=== PATIENT | female | born 1930 | race Caucasian/White ===

== ENCOUNTER 2017-01-07 08:48 | Outpatient (CLI) | payer MEDICARE, BC | END 2017-01-07 08:49 | disposition home or self-care (01) | DX: M10.9 Gout, unspecified (principal); R73.09 Other abnormal glucose; E03.9 Hypothyroidism, unspecified; Z85.3 Personal history of malignant neoplasm of breast ==

== ENCOUNTER 2017-01-27 09:31 | Outpatient (CLI) | payer MEDICARE, BC | END 2017-01-27 09:32 | disposition home or self-care (01) | DX: K80.20 Calculus of gallbladder without cholecystitis without obstruction (principal); K76.89 Other specified diseases of liver ==

== ENCOUNTER 2017-03-28 09:49 | Outpatient (CLI) | payer MEDICARE, BC ==
--- NOTE | 2017-03-29 10:03 | Mammography Report ---
DIGITAL BILATERAL SCREENING MAMMOGRAM: 03/28/2017 CLINICAL HISTORY: An 86-year-old female in for routine screening mammogram. Patient has no family h istory of breast cancer. Patient did have a left lumpectomy for breast cancer with radiation therapy . COMPARISON: 11/30/2007, 12/23/2008, 12/26/2009, 01/01/2011, 01/07/2012, 02/23/2013, 02/15/2014, 02/10, 03/25/2016 TECHNIQUE: Craniocaudad and oblique lateral views of each breast were obtained with [employer] [facility] digital mammography. FINDINGS: Breasts are almost entirely composed of fat. Mild skin thickening is noted along the periphery of the left breast. This is related to previous rehman rgery and radiation therapy. A small cluster of calcifications is noted in the extreme posterior asp ect of the tail of the right breast and/or in the right axilla. Etiological considerations include d eodorant artifact versus true cluster of calcifications. Patient had a similar finding on exam dated 03/25/2016. There were potential calcifications in this area in a smaller amount as far back as 200 9. Recommend patient return for additional views of this area. Additional views should include repe at oblique lateral view after her axilla has been cleansed to eliminate any deodorant artifact. If t his finding is still present, then an attempt should be made to obtain magnification views of this ar ea in oblique lateral and special axillary tail view. No additional abnormalities are noted. IMPRESSION: 1. PAST HISTORY OF LUMPECTOMY INVOLVING THE LEFT BREAST WITH SUBSEQUENT RADIATION THERAPY. SKIN OF THE LEFT BREAST IS MILDLY THICKENED A RESULT OF PREVIOUS SURGERY AND RADIATION THERAPY. NO SIGNIF ICANT CHANGE IS DETECTED IN THIS BREAST COMPARED TO MULTIPLE PRECEDING EXAMS. 2. EQUIVOCAL FINDING IS NOTED IN REGARD TO A SMALL CLUSTER OF CALCIFICATIONS IN THE EXTREME POSTERIO R ASPECT OF THE TAIL OF THE RIGHT BREAST OR RIGHT AXILLA. ETIOLOGICAL CONSIDERATIONS INCLUDE DEODORA NT ARTIFACT VERSUS TRUE CLUSTER OF CALCIFICATIONS. RECOMMEND PATIENT RETURN FOR ADDITIONAL VIEWS OF THE RIGHT BREAST DISCUSSED ABOVE. BIRADS CATEGORY 0 - INCOMPLETE. NEEDS ADDITIONAL IMAGING EVALUATION. ADDITIONAL VIEWS OF THE RIGHT BREAST. STANDARD QUALIFYING STATEMENTS 1. This examination was reviewed with the aid of Computer-Aided Detection (CAD). 2. A negative or benign imaging report should not delay biopsy if clinically suspicious findings are present. Consider surgical consultation if warranted. More than 5% of cancers are not identified by i maging. 3. Dense breasts may obscure an underlying neoplasm. JOB #: [id number] EXT JOB #:[id number]
== END 2017-03-28 09:50 | disposition home or self-care (01) ==
LOC: DI 09:49
PROVIDERS: ATTEND Internal Medicine
DX: Z12.31 Encounter for screening mammogram for malignant neoplasm of breast (principal); R92.8 Other abnormal and inconclusive findings on diagnostic imaging of breast; Z85.3 Personal history of malignant neoplasm of breast
CPT/HCPCS: 77067

== ENCOUNTER 2017-04-02 11:53 | Outpatient (CLI) | payer MEDICARE, BC ==
[2017-04-02 12:23] LABS: BILIRUBIN,URINE NEGATIVE (NEGATIVE); PH,URINE 6.5 PH (5.0-7.5)
[2017-04-02 12:28] LABS: UA w/ MICROSCOPIC CHARGE YES
[2017-04-02 12:37] LABS: UR CULTURE IF IND INDICATED; WBC,URINE >25 /HPF (0-5)
== END 2017-04-02 11:54 | disposition home or self-care (01) ==
LOC: LAB 11:53
PROVIDERS: ATTEND Nurse Practitioner Primary Care
DX: R30.0 Dysuria (principal)
CPT/HCPCS: 81001; 81003; 87086

== ENCOUNTER 2017-04-15 11:06 | Outpatient (CLI) | payer MEDICARE, BC ==
--- NOTE | 2017-04-15 15:33 | Mammography Report ---
DIGITAL DIAGNOSTIC RIGHT MAMMOGRAM: 04/15/2017 CLINICAL INDICATION: Possible calcifications right far upper posterior breast. TECHNIQUE: Right true lateral, laterally exaggerated craniocaudal, and spot magnification views. COMPARISON: 03/28/2017, 03/25/2016, 02/21/2015, 02/15/2014, 02/23/2013, 01/07/2012, 01/01/2011, 12/26. FINDINGS: The right breast again demonstrates scattered fibroglandular densities. Calcifications in the far right upper posterior breast persist. They are punctate on spot magnification views. No pleom orphism is seen. Other coarse and punctate, typically benign calcifications are present. IMPRESSION: PROBABLE BENIGN RIGHT BREAST CALCIFICATIONS. RECOMMENDATION: DIAGNOSTIC RIGHT MAMMOGRAM IN SIX MONTHS. BIRADS CATEGORY 3-PROBABLE BENIGN FINDINGS. STANDARD QUALIFYING STATEMENTS 1. This examination was reviewed with the aid of Computer-Aided Detection (CAD). 2. A negative or benign imaging report should not delay biopsy if clinically suspicious findings are present. Consider surgical consultation if warranted. More than 5% of cancers are not identified by i maging. 3. Dense breasts may obscure an underlying neoplasm. JOB #: [id number] EXT JOB #:[id number]
== END 2017-04-15 11:07 | disposition home or self-care (01) ==
LOC: DI 11:06
PROVIDERS: ATTEND Internal Medicine
DX: R92.2 Inconclusive mammogram (principal)

== ENCOUNTER 2017-06-13 11:30 | Outpatient (CLI) | payer MEDICARE, BC ==
[2017-06-13 12:46] LABS: ALBUMIN/GLOBULIN RATIO 1.4 (1.0-2.2); BILIRUBIN,TOTAL 0.8 mg/dL (0.2-1.0); CALCIUM 9.4 mg/dL (8.5-10.3); CREATININE 0.5 mg/dL (0.4-1.0); POTASSIUM 4.2 mmol/L (3.5-5.0); TOTAL PROTEIN 7.1 g/dL (6.7-8.2)
[2017-06-13 12:48] LABS: BASOPHILS # (AUTO) 0.1 10^3/uL (0.0-0.1); EOSINOPHILS # (AUTO) 0.1 10^3/uL (0.0-0.7); HCT - HEMATOCRIT 40.5 % (37.0-47.0); HGB - HEMOGLOBIN 13.6 g/dL (12.0-16.0); LYMPHOCYTES # (AUTO) 1.1 10^3/uL (1.5-3.5); LYMPHOCYTES % (AUTO) 19.3 %; MEAN CORPUSCULAR HEMOGLOBIN 34.7 pg (27.0-31.0); MEAN CORPUSCULAR HGB CONC 33.6 g/dL (32.0-36.0); MEAN CORPUSCULAR VOLUME 103.3 fL (81.0-99.0); MEAN PLATELET VOLUME 8.2 fL (7.9-10.8); MONOCYTES # (AUTO) 0.5 10^3/uL (0.0-1.0); MONOCYTES % (AUTO) 9.3 %; NEUTROPHILS # (AUTO) 3.8 10^3/uL (1.5-6.6); NEUTROPHILS % (AUTO) 68.4 %; RED BLOOD COUNT 3.92 10^6/uL (4.20-5.40); RED CELL DISTRIBUTION WIDTH 13.9 % (12.0-15.0); UNCORRECTED WHITE BLOOD COUNT 5.6 x10^3/uL; WHITE BLOOD COUNT 5.6 x10^3/uL (4.8-10.8)
== END 2017-06-13 11:31 | disposition home or self-care (01) ==
LOC: LAB.R 11:30
PROVIDERS: ATTEND Internal Medicine
DX: R10.13 Epigastric pain (principal)
CPT/HCPCS: 80053; 85025

== ENCOUNTER 2017-06-16 07:54 | Outpatient (CLI) | payer MEDICARE, BC ==
[2017-06-16] MEDS ORDERED: IOPAMIDOL-300 100 ML VIAL ONE (08:19)
[2017-06-16] MEDS ORDERED: IOPAMIDOL-300 50 ML VIAL ONE (08:19)
[2017-06-16] MEDS ORDERED: IOPAMIDOL-300 50 ML VIAL PO ONE (08:46)
[2017-06-16] MEDS ORDERED: IOPAMIDOL-300 100 ML VIAL IVP ONE (10:07)
--- NOTE | 2017-06-16 11:16 | CT Report ---
CT ABDOMEN AND PELVIS WITH CONTRAST: 06/16/2017 CLINICAL INDICATION: Epigastric pain. COMPARISON: 05/24/2013 TECHNIQUE: Axial CT images of the abdomen and pelvis were obtained with 100 mL Isovue-300 intravenou sly as well as oral contrast. In accordance with CT protocol optimization, one or more of the following dose reduction techniques w ere utilized for this exam: automated exposure control, adjustment of mA and/or KV based on patient size, or use of iterative reconstructive technique. FINDINGS: Limited evaluation of the lung bases demonstrates interval increase in size of the hiatal hernia. Minimal dependent atelectasis is present. Abdomen: Hepatic cysts are stable. The spleen, pancreas, kidneys, and adrenal glands are unremarkab le. The gallbladder is not dilated. No bowel dilatation, free gas, or free fluid is present. No a bdominal adenopathy is seen. Pelvis: Sigmoid diverticulosis is present, without CT evidence of diverticulitis. A pessary is note d in the vagina. No pelvic adenopathy or free fluid is present. Osseous structures demonstrate degenerative changes. IMPRESSION: INCREASE IN SIZE OF HIATAL HERNIA. DIVERTICULOSIS, WITHOUT CT EVIDENCE OF DIVERTICULITI S. JOB #: [id number] EXT JOB #:[id number]
== END 2017-06-16 07:55 | disposition home or self-care (01) ==
LOC: DI 07:54
PROVIDERS: ATTEND Internal Medicine
DX: K44.9 Diaphragmatic hernia without obstruction or gangrene (principal); K57.30 Diverticulosis of large intestine without perforation or abscess without bleeding
CPT/HCPCS: 74177; Q9967

== ENCOUNTER 2017-06-22 09:23 | Outpatient (CLI) | payer MEDICARE, BC ==
[2017-06-22 18:19] LABS: BILIRUBIN,DIRECT 0.1 mg/dL (0.1-0.5); TOTAL PROTEIN 6.8 g/dL (6.7-8.2)
== END 2017-06-22 09:24 | disposition home or self-care (01) ==
LOC: LAB.F 09:23
PROVIDERS: ATTEND Internal Medicine
DX: R89.9 Unspecified abnormal finding in specimens from other organs, systems and tissues (principal); R10.13 Epigastric pain
CPT/HCPCS: 36415; 80074; 80076; 82728

== ENCOUNTER 2017-07-06 09:22 | Outpatient (CLI) | payer MEDICARE, BC ==
[2017-07-06 17:52] LABS: ALBUMIN/GLOBULIN RATIO 1.3 (1.0-2.2); CALCIUM 9.2 mg/dL (8.5-10.3); CREATININE 0.6 mg/dL (0.4-1.0); POTASSIUM 3.9 mmol/L (3.5-5.0)
== END 2017-07-06 09:23 | disposition home or self-care (01) ==
LOC: LAB.F 09:22
PROVIDERS: ATTEND Internal Medicine
DX: R89.9 Unspecified abnormal finding in specimens from other organs, systems and tissues (principal)
CPT/HCPCS: 36415; 80053

== ENCOUNTER 2017-07-14 12:55 | Outpatient (CLI) | payer MEDICARE, BC ==
[2017-07-14 13:42] LABS: BILIRUBIN,TOTAL 0.8 mg/dL (0.2-1.0)
[2017-07-14 13:43] LABS: BILIRUBIN,DIRECT < 0.1 mg/dL (0.1-0.5)
[2017-07-16 13:57] LABS: ANA SCREEN NEGATIVE (NEGATIVE)
[2017-07-16 14:31] LABS: TEST RESULT REPORT
[2017-07-16 23:07] LABS: SMOOTH MUSCLE IGG AB <20 U
[2017-07-17 21:41] LABS: LIVER KIDNEY MICROSOME AB <20.0 U
== END 2017-07-14 12:56 | disposition home or self-care (01) ==
LOC: LAB 12:55
PROVIDERS: ATTEND Internal Medicine
DX: R89.9 Unspecified abnormal finding in specimens from other organs, systems and tissues (principal); Z79.899 Other long term (current) drug therapy
CPT/HCPCS: 36415; 80076; 81599; 82103; 82977; 83516; 86038; 86376

== ENCOUNTER 2017-08-02 08:00 | Outpatient (CLI) | payer MEDICARE, BC ==
[2017-08-02 12:53] LABS: BASOPHILS # (AUTO) 0.1 10^3/uL (0.0-0.1); BASOPHILS % (AUTO) 1.8 %; EOSINOPHILS # (AUTO) 0.1 10^3/uL (0.0-0.7); EOSINOPHILS % (AUTO) 1.7 %; HCT - HEMATOCRIT 38.4 % (37.0-47.0); HGB - HEMOGLOBIN 13.3 g/dL (12.0-16.0); LYMPHOCYTES # (AUTO) 0.9 10^3/uL (1.5-3.5); LYMPHOCYTES % (AUTO) 15.5 %; MEAN CORPUSCULAR HGB CONC 34.5 g/dL (32.0-36.0); MEAN CORPUSCULAR VOLUME 101.5 fL (81.0-99.0); MEAN PLATELET VOLUME 8.6 fL (7.9-10.8); MONOCYTES # (AUTO) 0.4 10^3/uL (0.0-1.0); MONOCYTES % (AUTO) 6.5 %; NEUTROPHILS # (AUTO) 4.4 10^3/uL (1.5-6.6); NEUTROPHILS % (AUTO) 74.5 %; RED BLOOD COUNT 3.79 10^6/uL (4.20-5.40); RED CELL DISTRIBUTION WIDTH 12.5 % (12.0-15.0); UNCORRECTED WHITE BLOOD COUNT 5.9 x10^3/uL; WHITE BLOOD COUNT 5.9 x10^3/uL (4.8-10.8)
[2017-08-02 13:25] LABS: ALBUMIN/GLOBULIN RATIO 1.2 (1.0-2.2); BILIRUBIN,TOTAL 0.8 mg/dL (0.2-1.0); CALCIUM 8.8 mg/dL (8.5-10.3); CREATININE 0.5 mg/dL (0.4-1.0); POTASSIUM 4.3 mmol/L (3.5-5.0); TOTAL PROTEIN 6.8 g/dL (6.7-8.2)
== END 2017-08-02 08:01 | disposition home or self-care (01) ==
LOC: LAB.R 08:00
PROVIDERS: ATTEND Nurse Practitioner Primary Care
DX: B37.3 Candidiasis of vulva and vagina (principal); N39.0 Urinary tract infection, site not specified; R81 Glycosuria
CPT/HCPCS: 80053; 85025; 87086

== ENCOUNTER 2017-08-09 14:28 | Outpatient (CLI) | payer MEDICARE, BC ==
[2017-08-09 12:04] LABS: BASOPHILS # (AUTO) 0.1 10^3/uL (0.0-0.1); BASOPHILS % (AUTO) 2.4 %; EOSINOPHILS # (AUTO) 0.1 10^3/uL (0.0-0.7); EOSINOPHILS % (AUTO) 1.8 %; HCT - HEMATOCRIT 40.5 % (37.0-47.0); HGB - HEMOGLOBIN 13.8 g/dL (12.0-16.0); LYMPHOCYTES # (AUTO) 1.1 10^3/uL (1.5-3.5); LYMPHOCYTES % (AUTO) 21.1 %; MEAN CORPUSCULAR HEMOGLOBIN 34.8 pg (27.0-31.0); MEAN CORPUSCULAR HGB CONC 34.2 g/dL (32.0-36.0); MEAN CORPUSCULAR VOLUME 101.9 fL (81.0-99.0); MEAN PLATELET VOLUME 8.4 fL (7.9-10.8); MONOCYTES # (AUTO) 0.5 10^3/uL (0.0-1.0); MONOCYTES % (AUTO) 9.1 %; NEUTROPHILS # (AUTO) 3.4 10^3/uL (1.5-6.6); NEUTROPHILS % (AUTO) 65.6 %; RED BLOOD COUNT 3.97 10^6/uL (4.20-5.40); RED CELL DISTRIBUTION WIDTH 12.8 % (12.0-15.0); UNCORRECTED WHITE BLOOD COUNT 5.1 x10^3/uL; WHITE BLOOD COUNT 5.1 x10^3/uL (4.8-10.8)
[2017-08-09 12:22] LABS: HEMOGLOBIN A1C 1.43 g/dL
[2017-08-09 12:28] LABS: ALBUMIN/GLOBULIN RATIO 1.2 (1.0-2.2); AMYLASE 43 U/L (28-100); BILIRUBIN,TOTAL 0.9 mg/dL (0.2-1.0); BUN - BLOOD UREA NITROGEN 16 mg/dL (6-20); CALCIUM 9.4 mg/dL (8.5-10.3); CARBON DIOXIDE - CO2 20 mmol/L (21-32); CHLORIDE 92 mmol/L (101-111); CREATININE 0.6 mg/dL (0.4-1.0); GFR - MDRD 94 (>89); GLUCOSE 538 mg/dL (70-100); LIPASE 51 U/L (22-51); POTASSIUM 4.8 mmol/L (3.5-5.0); SODIUM 126 mmol/L (135-145); TOTAL PROTEIN 7.1 g/dL (6.7-8.2)
== END 2017-08-09 14:29 | disposition home or self-care (01) ==
LOC: LAB.R 14:28
PROVIDERS: ATTEND Nurse Practitioner Primary Care
DX: R79.89 Other specified abnormal findings of blood chemistry (principal); R63.4 Abnormal weight loss; E11.65 Type 2 diabetes mellitus with hyperglycemia
CPT/HCPCS: 80053; 82150; 83036; 83690; 85025; 85651; 86140

== ENCOUNTER 2017-08-11 09:42 | Outpatient (CLI) | payer MEDICARE, BC ==
[2017-08-11 10:16] LABS: CALCIUM 9.5 mg/dL (8.5-10.3); CREATININE 0.5 mg/dL (0.4-1.0)
== END 2017-08-11 09:43 | disposition home or self-care (01) ==
LOC: LAB 09:42
PROVIDERS: ATTEND Nurse Practitioner Primary Care
DX: E10.9 Type 1 diabetes mellitus without complications (principal); R79.89 Other specified abnormal findings of blood chemistry; R63.4 Abnormal weight loss
CPT/HCPCS: 36415; 80048

== ENCOUNTER 2017-09-29 10:44 | Outpatient (CLI) | payer MEDICARE, BC ==
[2017-09-29 18:32] LABS: HB2 TOTAL 13.2 g/dL; HEMOGLOBIN A1C 0.88 g/dL; HEMOGLOBIN A1C % 8.3 % (4.6-6.2)
== END 2017-09-29 10:45 | disposition home or self-care (01) ==
LOC: LAB.R 10:44
PROVIDERS: ATTEND Internal Medicine
DX: N39.0 Urinary tract infection, site not specified (principal); E10.9 Type 1 diabetes mellitus without complications
CPT/HCPCS: 83036; 87086

== ENCOUNTER 2017-10-18 13:46 | Outpatient (CLI) | payer MEDICARE, BC ==
--- NOTE | 2017-10-18 18:19 | Mammography Report ---
DATE OF SERVICE: 10/18/2017 DIGITAL DIAGNOSTIC RIGHT MAMMOGRAM: 10/18/2017 CLINICAL INDICATION: Followup calcifications. TECHNIQUE: Right CC, MLO, true lateral, spot magnification views. COMPARISON: 04/15/2017, 03/28/2017, 03/25/2016, 02/21/2015, 02/15/2014, 02/23/2013, 01/07/2012, 01/01/2011, 12/26/2009. FINDINGS: The right breast again demonstrates fatty replacement. The calcifications in question, in the right upper outer far posterior breast, remain punctate on spot magnification views. No developing pleomorphism is seen. Other coarse, typically benign calcifications are stable. IMPRESSION: PROBABLE BENIGN CALCIFICATIONS IN THE RIGHT UPPER FAR POSTERIOR BREAST. RECOMMENDATION: Diagnostic bilateral mammogram in 6 months, to assure stability. BIRADS category 3, probable benign findings. STANDARD QUALIFYING STATEMENTS 1. This examination was reviewed with the aid of Computed-Aided Detection (CAD). 2. A negative or benign imaging report should not delay biopsy if clinically suspicious findings are present. Consider surgical consultation if warranted. More than 5% of cancers are not identified by imaging. 3. Dense breasts may obscure an underlying neoplasm. TD: 10/18/2017 18:18
== END 2017-10-18 13:47 | disposition home or self-care (01) ==
LOC: DI 13:46
PROVIDERS: ATTEND Internal Medicine
DX: R92.1 Mammographic calcification found on diagnostic imaging of breast (principal)

== ENCOUNTER 2017-10-28 08:29 | Outpatient (CLI) | payer MEDICARE, BC ==
[2017-10-28 10:24] LABS: CHOL/HDL RATIO 3.4 (<4.4); CHOLESTEROL 204 mg/dL; HDL CHOLESTEROL 60 mg/dL; LDL CHOLESTEROL,CALCULATED 132 mg/dL; LDL/HDL RATIO 2.2 (<4.4); VLDL CHOLESTEROL 12 mg/dL
== END 2017-10-28 08:30 | disposition home or self-care (01) ==
LOC: LAB.F 08:29
PROVIDERS: ATTEND Physician Assistant
DX: R74.8 Abnormal levels of other serum enzymes (principal); R10.13 Epigastric pain; R63.4 Abnormal weight loss; R63.0 Anorexia
CPT/HCPCS: 36415; 80061; 83721

== ENCOUNTER 2017-12-06 09:42 | Outpatient (CLI) | payer MEDICARE, BC ==
[2017-12-06 17:50] LABS: BASOPHILS # (AUTO) 0.1 10^3/uL (0.0-0.1); BASOPHILS % (AUTO) 2.5 %; EOSINOPHILS # (AUTO) 0.3 10^3/uL (0.0-0.7); EOSINOPHILS % (AUTO) 7.2 %; HGB - HEMOGLOBIN 12.5 g/dL (12.0-16.0); LYMPHOCYTES # (AUTO) 1.2 10^3/uL (1.5-3.5); LYMPHOCYTES % (AUTO) 25.4 %; MEAN CORPUSCULAR HEMOGLOBIN 31.3 pg (27.0-31.0); MEAN CORPUSCULAR HGB CONC 32.8 g/dL (32.0-36.0); MEAN CORPUSCULAR VOLUME 95.2 fL (81.0-99.0); MEAN PLATELET VOLUME 8.5 fL (7.9-10.8); MONOCYTES # (AUTO) 0.5 10^3/uL (0.0-1.0); MONOCYTES % (AUTO) 9.6 %; NEUTROPHILS # (AUTO) 2.6 10^3/uL (1.5-6.6); NEUTROPHILS % (AUTO) 55.3 %; PLT - PLATELET COUNT 334 10^3/uL (130-450); RED BLOOD COUNT 4.01 10^6/uL (4.20-5.40); RED CELL DISTRIBUTION WIDTH 13.5 % (12.0-15.0); WHITE BLOOD COUNT 4.7 x10^3/uL (4.8-10.8)
[2017-12-06 17:54] LABS: ALBUMIN 3.7 g/dL (3.2-5.5); ALBUMIN/GLOBULIN RATIO 1.2 (1.0-2.2); BILIRUBIN,TOTAL 0.9 mg/dL (0.2-1.0); CALCIUM 9.8 mg/dL (8.5-10.3); CREATININE 0.7 mg/dL (0.4-1.0); TOTAL PROTEIN 6.7 g/dL (6.7-8.2)
== END 2017-12-06 09:43 | disposition home or self-care (01) ==
LOC: LAB 09:42
PROVIDERS: ATTEND Nurse Practitioner Primary Care
DX: E10.9 Type 1 diabetes mellitus without complications (principal); E03.9 Hypothyroidism, unspecified; R79.89 Other specified abnormal findings of blood chemistry; K59.00 Constipation, unspecified; R63.4 Abnormal weight loss; R74.8 Abnormal levels of other serum enzymes; M1A.9XX0 Chronic gout, unspecified, without tophus (tophi)
CPT/HCPCS: 36415; 80053; 82248; 84443; 85025; 85610

== ENCOUNTER 2017-12-22 15:11 | Outpatient (CLI) | payer MEDICARE, BC ==
--- NOTE | 2017-12-23 09:24 | XRAY Report ---
TWO VIEW CHEST: 12/22/2017 CLINICAL INDICATION: Cough, shortness of breath. COMPARISON: Chest CT 05/24/2013. FINDINGS: Frontal and lateral views of the chest demonstrate a normal cardiac silhouette. A moderate hiatal hernia is present. There is a left lower lobe infiltrate present, with small left effusion. No pneumothorax is seen. IMPRESSION: LEFT LOWER LOBE INFILTRATE, WITH SMALL LEFT EFFUSION. MODERATE HIATAL HERNIA. TD: 12/23/2017 09:23
== END 2017-12-22 15:12 | disposition home or self-care (01) ==
LOC: DI 15:11
PROVIDERS: ATTEND Internal Medicine
DX: R91.8 Other nonspecific abnormal finding of lung field (principal); J90 Pleural effusion, not elsewhere classified; K44.9 Diaphragmatic hernia without obstruction or gangrene
CPT/HCPCS: 71046

== ENCOUNTER 2018-01-05 09:20 | Outpatient (CLI) | payer MEDICARE, BC ==
[2018-01-05 18:10] LABS: ALT ALANINE AMINOTRANSFERASE 71 IU/L (10-60); AST ASPARTATE AMINOTRANSFERASE 99 IU/L (10-42); GLUCOSE,FASTING 128 mg/dL (70-100)
[2018-01-05 18:29] LABS: HB2 TOTAL 13.2 g/dL; HEMOGLOBIN A1C 0.78 g/dL; HEMOGLOBIN A1C % 7.6 % (4.6-6.2)
== END 2018-01-05 09:21 | disposition home or self-care (01) ==
LOC: LAB.F 09:20
PROVIDERS: ATTEND Nurse Practitioner Primary Care
DX: E10.9 Type 1 diabetes mellitus without complications (principal); R79.89 Other specified abnormal findings of blood chemistry; Z79.899 Other long term (current) drug therapy; I99.8 Other disorder of circulatory system
CPT/HCPCS: 36415; 82947; 83036; 84450; 84460

== ENCOUNTER 2018-03-01 13:58 | Outpatient (CLI) | payer MEDICARE, BC ==
[2018-03-01 17:48] LABS: ALBUMIN 3.4 g/dL (3.2-5.5); ALBUMIN/GLOBULIN RATIO 1.1 (1.0-2.2); BILIRUBIN,TOTAL 0.5 mg/dL (0.2-1.0); CALCIUM 8.9 mg/dL (8.5-10.3); CREATININE 0.4 mg/dL (0.4-1.0); TOTAL PROTEIN 6.4 g/dL (6.7-8.2)
== END 2018-03-01 13:59 | disposition home or self-care (01) ==
LOC: LAB.F 13:58
PROVIDERS: ATTEND Internal Medicine
DX: R79.89 Other specified abnormal findings of blood chemistry (principal)
CPT/HCPCS: 36415; 80053

== ENCOUNTER 2018-05-22 10:54 | Outpatient (CLI) | payer MEDICARE, BC ==
--- NOTE | 2018-05-23 12:04 | Mammography Report ---
Reason: FEMALE BREAST CANCER, LEFT BREAST Procedure Date: 05/22/2018 Accession Number: [id number] / [id number] Procedure: [facility] - Diagnostic Dig Bilat CPT Code: FULL RESULT: EXAM: Diagnostic Dig Bilat DATE: 05/22/2018 11:52 AM CLINICAL HISTORY: Follow-up calcifications BI-RADS 3 TECHNIQUE: Bilateral MLO and CC breast views. Additional spot magnification CC and LM right breast. COMPARISON: October 18, 2017 mammogram FINDINGS: There are scattered fibroglandular densities. Again seen is a cluster of calcifications in the right upper outer breast. They are predominantly punctate, coarse, and ovoid. They appear unchanged. No mass or architectural distortion is seen. IMPRESSION: BI-RADS Category 3. Probably benign findings. RECOMMENDATION: Six-month right diagnostic mammogram to evaluate stability. BIRADS CATEGORY 3. Probably benign findings. STANDARD QUALIFYING STATEMENTS: 1. This examination was reviewed with the aid of Computer-Aided Detection (CAD). 2. A negative or benign imaging report should not delay biopsy if clinically suspicious findings are present. Consider surgical consultation if warrented. More than 5% of cancers are not identified by imaging. 3. Dense breasts may obscure an underlying neoplasm.
== END 2018-05-22 10:55 | disposition home or self-care (01) ==
LOC: DI 10:54
PROVIDERS: ATTEND Internal Medicine
DX: C50.912 Malignant neoplasm of unspecified site of left female breast (principal)
CPT/HCPCS: 77066

== ENCOUNTER 2018-06-22 09:34 | Outpatient (CLI) | payer MEDICARE, BC ==
[2018-06-22 18:03] LABS: ALBUMIN 3.8 g/dL (3.2-5.5); ALBUMIN/GLOBULIN RATIO 1.4 (1.0-2.2); BILIRUBIN,TOTAL 0.8 mg/dL (0.2-1.0); CALCIUM 9.1 mg/dL (8.5-10.3); CREATININE 0.4 mg/dL (0.4-1.0); TOTAL PROTEIN 6.5 g/dL (6.7-8.2)
[2018-06-22 18:57] LABS: HB2 TOTAL 13.9 g/dL; HEMOGLOBIN A1C 0.65 g/dL; HEMOGLOBIN A1C % 6.4 % (4.6-6.2)
== END 2018-06-22 09:35 | disposition home or self-care (01) ==
LOC: LAB.F 09:34
PROVIDERS: ATTEND Internal Medicine
DX: E10.9 Type 1 diabetes mellitus without complications (principal); R79.89 Other specified abnormal findings of blood chemistry
CPT/HCPCS: 36415; 80053; 83036

== ENCOUNTER 2018-09-11 09:00 | Outpatient (CLI) | payer MEDICARE, BC ==
[2018-09-11] MEDS: BARIUM SULFATE 176 GM BOTTLE PO ONE (10:17)
[2018-09-11] MEDS: SIMETHICONE/SOD BICARB/CIT AC 1 EACH PACKET PO ONE (10:18)
[2018-09-11] MEDS: BARIUM SULFATE 135 ML BOTTLE PO ONE (10:18)
--- NOTE | 2018-09-11 14:35 | XRAY Report ---
Reason: EPIGASTRIC DISCOMFORT, RUQ, HIATAL HERNIA Procedure Date: 09/11/2018 Accession Number: [id number] / [id number] Procedure: FL - Esophogram CPT Code: FULL RESULT: EXAM: BARIUM ESOPHAGRAM EXAM DATE: 09/11/2018 10:13 AM. CLINICAL HISTORY: Epigastric discomfort, right upper quadrant, hiatal hernia. COMPARISONS: None. TECHNIQUE: Routine double contrast esophagram. Fluoroscopy Time: 1 minute 18 seconds. Number of Images: 30. FINDINGS: Swallowing Mechanism: Normal. No tracheal aspiration or penetration. Esophageal Motility: Normal peristaltic stripping wave. Mucosa: The lower esophageal mucosa appears irregular segmentally a few centimeters above and in the region of the GE junction. Gastroesophageal Junction: The large portion of the stomach is intrathoracic in keeping with a large hernia. Other: None. IMPRESSION: Large hiatal hernia and distal esophageal mucosal changes. If this has not been performed, recommend endoscopic evaluation of the lower esophagus in the setting of large hiatal hernia. RADIA
== END 2018-09-11 09:01 | disposition home or self-care (01) ==
LOC: DI 09:00
PROVIDERS: ATTEND Internal Medicine
DX: K44.9 Diaphragmatic hernia without obstruction or gangrene (principal); R10.13 Epigastric pain; R10.11 Right upper quadrant pain
CPT/HCPCS: 74220; A9270

== ENCOUNTER 2018-09-25 07:50 | Outpatient (CLI) | payer MEDICARE, BC ==
[2018-09-25 09:44] LABS: ALBUMIN 3.8 g/dL (3.2-5.5); ALBUMIN/GLOBULIN RATIO 1.4 (1.0-2.2); BILIRUBIN,TOTAL 0.8 mg/dL (0.2-1.0); CALCIUM 9.2 mg/dL (8.5-10.3); CREATININE 0.5 mg/dL (0.4-1.0); TOTAL PROTEIN 6.6 g/dL (6.7-8.2)
[2018-09-25 10:09] LABS: HB2 TOTAL 13.7 g/dL; HEMOGLOBIN A1C 0.67 g/dL; HEMOGLOBIN A1C % 6.6 % (4.6-6.2)
--- NOTE | 2018-09-25 17:41 | Ultrasound Report ---
Reason: EPIGASTRIC DISCOMFORT, RUQ, HIATAL HERNIA Procedure Date: 09/25/2018 Accession Number: [id number] / [id number] Procedure: US - Abdomen Complete CPT Code: FULL RESULT: EXAM: ABDOMEN ULTRASOUND EXAM DATE: 09/25/2018 09:11 AM. CLINICAL HISTORY: EPIGASTRIC DISCOMFORT, RUQ, HIATAL HERNIA. COMPARISON: None. TECHNIQUE: Real-time scanning was performed with static images obtained. FINDINGS: Liver: The liver is moderately and diffusely echogenic. Normal contour. No masses. 2 simple appearing cysts in the left lobe measure 1.1 cm and 1.0 cm. A simple appearing cyst in the right lobe measures 2.5 cm. The liver measures 12.3 cm. Main portal vein flow: Hepatopetal. Gallbladder: There are multiple small layering gallstones. No gallbladder wall thickening or pericholecystic fluid. Biliary System: Common bile duct measures 6 mm. No intrahepatic or extrahepatic ductal dilatation. Pancreas: Not well seen due to overlying bowel gas. Kidneys: Right: 10.1 cm longitudinally. Mild renal pelviectasis. Otherwise No contour-deforming mass, stones, or hydronephrosis. Left: 10.5 cm longitudinally. No contour-deforming mass, stones, or hydronephrosis. Spleen: 7.9 cm. Normal in size and echotexture. Aorta and Inferior Vena Cava: Unremarkable. IMPRESSION: Moderate hepatic steatosis. Multiple gallstones without cholecystitis. RADIA
== END 2018-09-25 07:51 | disposition home or self-care (01) ==
LOC: DI 07:50
PROVIDERS: ATTEND Internal Medicine
DX: K80.20 Calculus of gallbladder without cholecystitis without obstruction (principal); K76.0 Fatty (change of) liver, not elsewhere classified; K44.9 Diaphragmatic hernia without obstruction or gangrene; E10.9 Type 1 diabetes mellitus without complications; R74.8 Abnormal levels of other serum enzymes; Z79.899 Other long term (current) drug therapy
CPT/HCPCS: 36415; 76700; 80053; 83036

== ENCOUNTER 2018-10-31 08:00 | Outpatient (CLI) | payer MEDICARE, BC | END 2018-10-31 23:59 | disposition home or self-care (01) | LOC: LAB.R 08:00 | PROVIDERS: ATTEND Physician Assistant Medical | DX: N30.00 Acute cystitis without hematuria (principal) | CPT/HCPCS: 87086 ==

== ENCOUNTER 2018-11-07 08:00 | Outpatient (CLI) | payer MEDICARE, BC | END 2018-11-07 23:59 | disposition home or self-care (01) | LOC: LAB.R 08:00 | PROVIDERS: ATTEND Physician Assistant Medical | DX: N30.00 Acute cystitis without hematuria (principal) | CPT/HCPCS: 87086 ==

== ENCOUNTER 2018-12-22 08:13 | Outpatient (CLI) | payer MEDICARE, BC ==
[2018-12-22 11:04] LABS: CHOL/HDL RATIO 3.3 (<4.4); CHOLESTEROL 250 mg/dL; HDL CHOLESTEROL 75 mg/dL; LDL CHOLESTEROL,CALCULATED 166 mg/dL; LDL/HDL RATIO 2.2 (<4.4); VLDL CHOLESTEROL 9 mg/dL
[2018-12-22 11:06] LABS: HEMOGLOBIN A1C 0.75 g/dL; HEMOGLOBIN A1C % 7.1 % (4.6-6.2)
== END 2018-12-22 08:14 | disposition home or self-care (01) ==
LOC: LAB.F 08:13
PROVIDERS: ATTEND Internal Medicine
DX: E10.9 Type 1 diabetes mellitus without complications (principal); E03.9 Hypothyroidism, unspecified
CPT/HCPCS: 36415; 80061; 82043; 83036; 83721; 84443

== ENCOUNTER 2019-01-23 18:19 | Outpatient (CLI) | payer SELFPAY | END 2019-01-23 18:20 | disposition EMS.NT | LOC: EMS 18:19 | PROVIDERS: ATTEND Surgery | DX: R04.0 Epistaxis (principal) ==

== ENCOUNTER 2019-01-23 19:14 | Emergency (ER) | payer MEDICARE, BC ==
[2019-01-23 20:05] LABS: BASOPHILS # (AUTO) 0.1 10^3/uL (0.0-0.1); EOSINOPHILS # (AUTO) 0.1 10^3/uL (0.0-0.7); EOSINOPHILS % (AUTO) 1.4 %; HGB - HEMOGLOBIN 12.4 g/dL (12.0-16.0); LYMPHOCYTES # (AUTO) 0.9 10^3/uL (1.5-3.5); LYMPHOCYTES % (AUTO) 12.7 %; MEAN CORPUSCULAR VOLUME 97.2 fL (81.0-99.0); MEAN PLATELET VOLUME 7.2 fL (7.9-10.8); MONOCYTES # (AUTO) 0.5 10^3/uL (0.0-1.0); MONOCYTES % (AUTO) 7.5 %; NEUTROPHILS # (AUTO) 5.5 10^3/uL (1.5-6.6); NEUTROPHILS % (AUTO) 77.4 %; PLT - PLATELET COUNT 318 10^3/uL (130-450); RED BLOOD COUNT 3.64 10^6/uL (4.20-5.40); RED CELL DISTRIBUTION WIDTH 13.4 % (12.0-15.0); WHITE BLOOD COUNT 7.1 x10^3/uL (4.8-10.8)
[2019-01-23 20:11] LABS: INR 1.1 (0.8-1.2); PT - PROTHROMBIN TIME 12.5 secs (9.9-12.6)
[2019-01-23 20:16] LABS: CALCIUM 9.2 mg/dL (8.5-10.3); CREATININE 0.5 mg/dL (0.4-1.0)
--- NOTE | 2019-01-23 20:39 | CT Report ---
Reason: fall, head injury, dizzy Procedure Date: 01/23/2019 Accession Number: [id number] / [id number] Procedure: CT - HEAD WO CPT Code: FULL RESULT: EXAM: CT HEAD EXAM DATE: 01/23/2019 08:13 PM. CLINICAL HISTORY: Fall, head injury, dizzy. COMPARISON: None. TECHNIQUE: Multiaxial CT images were obtained from the foramen magnum to the vertex. Reformats: Sagittal and coronal. IV contrast: None. In accordance with CT protocol optimization, one or more of the following dose reduction techniques were utilized for this exam: automated exposure control, adjustment of mA and/or KV based on patient size, or use of iterative reconstructive technique. FINDINGS: Parenchyma: No intraparenchymal hemorrhage. No evidence of mass, midline shift, or CT findings of acute infarction. Nichole-white differentiation is distinct. Diffuse chronic microangiopathic white matter changes are evident. Extraaxial Spaces: Normal for age. No subdural or epidural collections identified. Ventricles: The ventricles and cortical sulci are enlarged, consistent with age-related tissue loss. Sinuses and orbits: Imaged paranasal sinuses, orbits, and mastoids show no significant abnormality. Bones: No evidence of fracture or calvarial defect. Other: None. IMPRESSION: Generalized age-related cortical atrophic changes without evidence of acute intracranial abnormality. RADIA
[2019-01-23] MEDS ORDERED: TRANEXAMIC ACID 1,000 MG/10 ML VIAL NAS STA (21:30)
--- NOTE | 2019-01-23 22:14 | ED Physician Documentation ---
PD HPI HEENT - Stated complaint Stated Complaint: NOSE BLEED - Chief complaint Chief Complaint: Heent - History obtained from History obtained from: Patient, Family - History of Present Illness Timing - onset: How many hours ago (5) Timing - duration: Hours (5) Timing - details: Abrupt onset, Constant, Still present in ED Pain level max: 0 Pain level now: 0 Location: Nose Improves: Nothing Associated symptoms: No: Fever, Congestion, Rhinorrhea, Trismus, Unable to swallow, Swollen nodes, Facial swelling, Headache, Cough Similar symptoms before: Has not had sx before Recently seen: Not recently seen - Additional information Additional information: also fell and hit her head and her right hip today. Review of Systems Constitutional: denies: Fever, Chills Respiratory: denies: Cough GI: denies: Vomiting, Diarrhea Neurologic: denies: Focal weakness, Numbness, Seizure, Altered mental status, LOC PD PAST MEDICAL HISTORY - Past Medical History Past Medical History: Yes Cardiovascular: None Respiratory: Asthma, Pneumonia Endocrine/Autoimmune: Type 1 diabetes, HyPOthyroidism GI: Colon polyps, Hepatitis : Incontinence, Frequency HEENT: Macular degeneration Psych: None Musculoskeletal: Gout Derm: Other - Past Surgical History Past Surgical History: Yes General: Colonoscopy, Other HEENT: Tonsil/Adenoidectomy - Present Medications Home Medications: Ambulatory Orders Medication Instructions Recorded Confirmed Allopurinol [Zyloprim] 100 mg PO DAILY 01/23/13 11/10/17 Fluticasone 44 Mcg [Flovent] 2 puffs INH BID 01/23/13 11/10/17 Levothyroxine Sodium [Synthroid] 50 mcg PO DAILY 01/23/13 11/10/17 Salmeterol [Serevent] 1 puffs INH BID 01/23/13 11/10/17 Allopurinol 100 mg PO DAILY 08/11/17 11/10/17 Aspirin 81 mg PO DAILY 08/11/17 11/10/17 Calcium Carbonate/Vitamin D3 1 each PO BID 08/11/17 11/10/17 [Calcium 600 + Vit D 400 Tablet] Cholecalciferol (Vitamin D3) 1,000 unit PO BID 08/11/17 11/10/17 [Vitamin D3] Docusate Sodium 300 mg PO DAILY 08/11/17 11/10/17 Insulin Glargine [Lantus Solostar] 7 unit SUBQ QPM 08/11/17 11/10/17 Omeprazole 20 mg PO DAILY 08/11/17 11/10/17 Sulfamethox/Trimeth 800/160 1 each PO BID 08/11/17 11/10/17 [Bactrim Ds 800/160] Vit C/E/Zinc/Lutein/Zeaxanthin 1 each PO DAILY 08/11/17 11/10/17 [[employer] Gummies] Metformin HCl 250 mg PO BID 08/12/17 11/10/17 Cephalexin [Keflex] 500 mg PO Q6H #8 capsule 01/23/19 - Allergies Allergies/Adverse Reactions: Allergies Allergy/AdvReac Type Severity Reaction Status Date / Time hydrocodone [Hydrocodone] Allergy Intermediate Rash Verified 01/23/19 19:25 Qojxetg-Yca-Pvq Reductase AdvReac Unknown Verified 01/23/19 19:25 Inhibitor Sulfa (Sulfonamide AdvReac Rash Verified 01/24/19 12:49 Antibiotics) - Social History Does the pt smoke?: No Smoking Status: Never smoker Does the pt drink ETOH?: Yes ETOH Use: Wine Does the pt have substance abuse?: No - Immunizations Immunizations are current?: Yes Immunizations: TDAP current <10years - POLST Patient has POLST: No PD ED PE NORMAL - Vitals Vital signs reviewed: Yes - General General: Alert and oriented X 3, No acute distress - HEENT HEENT: Atraumatic, PERRL, EOMI, Moist mucous membranes, Other (Slow drip from the right nare. No source of bleeding visible) - Neck Neck: Supple, no meningeal sign, No bony TTP - Cardiac Cardiac: RRR, Strong equal pulses - Respiratory Respiratory: No respiratory distress, Clear bilaterally - Back Back: No spinal TTP - Derm Derm: Warm and dry - Extremities Extremities: No deformity, No tenderness to palpate, No edema, No calf tenderness / cord - Neuro Neuro: Alert and oriented X 3, emergency man 2-12 intact, No motor deficit, No sensory deficit, Normal speech Eye Opening: Spontaneous Motor: Obeys Commands Verbal: Oriented GCS Score: 15 Results - Vitals Vitals: Vital Signs - 24 hr 01/23/19 01/23/19 01/23/19 19:23 21:40 22:53 Temperature 36.4 C L Heart Rate 106 H 105 H 108 H Respiratory 14 18 20 Rate Blood Pressure 176/93 H 154/77 H 145/82 H O2 Saturation 98 98 96 Oxygen O2 Source Room air - Labs Labs: Laboratory Tests 01/23/19 01/23/19 01/23/19 19:58 19:58 19:58 WBC 7.1 RBC 3.64 L Hgb 12.4 Hct 35.3 L MCV 97.2 MCH 34.0 H MCHC 35.0 RDW 13.4 Plt Count 318 MPV 7.2 L Neut # (Auto) 5.5 Lymph # (Auto) 0.9 L [place] # (Auto) 0.5 Eos # (Auto) 0.1 Baso # (Auto) 0.1 Absolute Nucleated RBC 0.00 Nucleated RBC % 0.0 PT 12.5 INR 1.1 APTT Sodium 127 L Potassium 4.2 Chloride 94 L Carbon Dioxide 22 Anion Gap 11.0 BUN 25 H Creatinine 0.5 Estimated GFR (MDRD) 116 Glucose 228 H Calcium 9.2 01/23/19 19:58 WBC RBC Hgb Hct MCV MCH MCHC RDW Plt Count MPV Neut # (Auto) Lymph # (Auto) [place] # (Auto) Eos # (Auto) Baso # (Auto) Absolute Nucleated RBC Nucleated RBC % PT INR APTT 28.3 Sodium Potassium Chloride Carbon Dioxide Anion Gap BUN Creatinine Estimated GFR (MDRD) Glucose Calcium - Rads (name of study) Head CT Radiology: Prelim report reviewed, EMP read contemporaneously, See rad report (No acute intracranial abnormality) PD MEDICAL DECISION MAKING - ED course Complexity details: reviewed results, re-evaluated patient, considered differential, d/w patient, d/w family ED course: 88-year-old female with a nosebleed. Also a ground-level fall. No tenderness over the right hip. Ambulating well. She did strike her head, head CT performed in case there was tearing of the bridging veins, head CT is negative. Her epistaxis was treated with intranasal TXA as well as foam packing. Bleeding stopped in the emergency department. No acute lab abnormalities. We will follow-up with her doctor in 2 days for packing removal. Will place on Keflex. Patient counseled regarding signs and symptoms for which I believe and urgent re-evaluation would be necessary. Patient with good understanding of and agreement to plan and is comfortable going home at this time This document was made in part using voice recognition software. While efforts are made to proofread this document, sound alike and grammatical errors may occur. Silver nitrate was also used to cauterize a small area that was bleeding in the anterior aspect of the nose Departure - Departure Disposition: 01 Home, Self Care Clinical Impression: Epistaxis Condition: Good Instructions: ED Nosebleed Follow-Up: Woo Torres MD [Primary Care Provider] - (within 2 days for packing removal) Prescriptions: Cephalexin [Keflex] 500 mg PO Q6H #8 capsule Comments: The packing should be removed in 2 days either here or with your doctor. Take all antibiotics until gone. Return if you worsen. Discharge Date/Time: 01/23/19 22:56
[2019-01-23 22:54] VITALS: BP 145/82
== END 2019-01-23 22:56 | disposition home or self-care (01) ==
LOC: ED 19:14
DX: R04.0 Epistaxis (principal); S09.90XA Unspecified injury of head, initial encounter; W18.30XA Fall on same level, unspecified, initial encounter; E10.9 Type 1 diabetes mellitus without complications; Z79.4 Long term (current) use of insulin; E03.9 Hypothyroidism, unspecified; Z79.82 Long term (current) use of aspirin
CPT/HCPCS: 30901; 36415; 70450; 80048; 85025; 85610; 85730; 99283

== ENCOUNTER 2019-01-24 12:42 | Emergency (ER) | payer MEDICARE, BC ==
--- NOTE | 2019-01-24 14:05 | ED Physician Documentation ---
PD HPI HEENT - Stated complaint Stated Complaint: NOSE BLEED - Chief complaint Chief Complaint: Heent - History obtained from History obtained from: Patient - History of Present Illness Timing - onset: Yesterday Timing - details: Abrupt onset. No: Still present (she says she had some bleeding after packing placed in the nose last night, but seemed to stop today. Here for recheck.) Location: Nose (right anterior nosebleed yesterday. Some blood and clots from left nostril after right side occluded.) Review of Systems Constitutional: denies: Fever Nose: reports: Epistaxis. denies: Sinus pressure / pain PD PAST MEDICAL HISTORY - Past Medical History Cardiovascular: None Respiratory: Asthma, Pneumonia Endocrine/Autoimmune: Type 1 diabetes, HyPOthyroidism GI: Colon polyps, Hepatitis : Incontinence, Frequency HEENT: Macular degeneration Psych: None Musculoskeletal: Gout Derm: Other - Past Surgical History Past Surgical History: Yes General: Colonoscopy, Other HEENT: Tonsil/Adenoidectomy - Present Medications Home Medications: Ambulatory Orders Medication Instructions Recorded Confirmed Allopurinol [Zyloprim] 100 mg PO DAILY 01/23/13 11/10/17 Fluticasone 44 Mcg [Flovent] 2 puffs INH BID 01/23/13 11/10/17 Levothyroxine Sodium [Synthroid] 50 mcg PO DAILY 01/23/13 11/10/17 Salmeterol [Serevent] 1 puffs INH BID 01/23/13 11/10/17 Allopurinol 100 mg PO DAILY 08/11/17 11/10/17 Aspirin 81 mg PO DAILY 08/11/17 11/10/17 Calcium Carbonate/Vitamin D3 1 each PO BID 08/11/17 11/10/17 [Calcium 600 + Vit D 400 Tablet] Cholecalciferol (Vitamin D3) 1,000 unit PO BID 08/11/17 11/10/17 [Vitamin D3] Docusate Sodium 300 mg PO DAILY 08/11/17 11/10/17 Insulin Glargine [Lantus Solostar] 7 unit SUBQ QPM 08/11/17 11/10/17 Omeprazole 20 mg PO DAILY 08/11/17 11/10/17 Sulfamethox/Trimeth 800/160 1 each PO BID 08/11/17 11/10/17 [Bactrim Ds 800/160] Vit C/E/Zinc/Lutein/Zeaxanthin 1 each PO DAILY 08/11/17 11/10/17 [[facility]] Metformin HCl 250 mg PO BID 08/12/17 11/10/17 Cephalexin [Keflex] 500 mg PO Q6H #8 capsule 01/23/19 - Allergies Allergies/Adverse Reactions: Allergies Allergy/AdvReac Type Severity Reaction Status Date / Time hydrocodone [Hydrocodone] Allergy Intermediate Rash Verified 01/23/19 19:25 Jtylfcb-Dot-Pwd Reductase AdvReac Unknown Verified 01/23/19 19:25 Inhibitor Sulfa (Sulfonamide AdvReac Rash Verified 01/24/19 12:49 Antibiotics) - Social History Does the pt smoke?: No Smoking Status: Never smoker Does the pt drink ETOH?: Yes Does the pt have substance abuse?: No - Immunizations Immunizations are current?: Yes Immunizations: TDAP current <10years - POLST Patient has POLST: No PD ED PE NORMAL - Vitals Vital signs reviewed: Yes - General General: Alert and oriented X 3, No acute distress, Well developed/nourished - HEENT HEENT: Other (packing in right nostril. No active bleeding anterior nor in throat. ) Results - Vitals Vitals: Vital Signs - 24 hr 01/24/19 01/24/19 12:46 14:37 Temperature 36.9 C 36.6 C Heart Rate 104 H 88 Respiratory 16 17 Rate Blood Pressure 151/62 H 161/86 H O2 Saturation 96 98 Oxygen O2 Source Room air PD MEDICAL DECISION MAKING - ED course Complexity details: considered differential (packign removed from nostril and no bleeding. Right medial wall spot of inflammation noted and silver nitrate used to that spot. Expanding foam packing placed again, expanded with lido/epi. No bleeding. ), d/w patient Departure - Departure Disposition: 01 Home, Self Care Clinical Impression: Encounter for removal of nasal packing Condition: Stable Record reviewed to determine appropriate education?: Yes Instructions: Nosebleed Follow-Up: Woo Torres MD [Primary Care Provider] - Comments: Leave this packing in place until tomorrow and then have it removed either returning here or your primary care or you could pull it out gently if there is no signs of bleeding. The return if recurrent bleeding. If you do get a little bit of bleeding on the gauze packing, just pinch her nose for 10 or 20 minutes and see if it stops. If you have persistent bleeding beyond that then return here. Otherwise just have the packing removed in about a day. Discharge Date/Time: 01/24/19 14:38
[2019-01-24 14:38] VITALS: BP 161/86
== END 2019-01-24 14:38 | disposition home or self-care (01) ==
LOC: ED 12:42
DX: Z48.00 Encounter for change or removal of nonsurgical wound dressing (principal); E10.9 Type 1 diabetes mellitus without complications
CPT/HCPCS: 99282; 99283